=== PATIENT | female | born 1950 | race African-American/Black ===

== ENCOUNTER 2022-01-21 21:42 | Emergency (ER) | payer MEDICARE, MEDICAID ==
[~2022-01-21 21:42] MED LIST: MD-Gastroview 120 ML BOT ONE
== END 2022-01-22 02:36 ==
LOC: CSHERS 21:42
DX: K94.23 Gastrostomy malfunction (principal); I12.9 Hypertensive chronic kidney disease with stage 1 through stage 4 chronic kidney disease, or unspecified chronic kidney disease; N18.9 Chronic kidney disease, unspecified; K21.9 Gastro-esophageal reflux disease without esophagitis; Z79.899 Other long term (current) drug therapy
CPT/HCPCS: 43762; 74018; Q9963

== ENCOUNTER 2022-06-20 11:27 | Outpatient (CLI) | payer MEDICARE, MEDICAID | END 2022-06-20 11:28 | disposition home or self-care (01) | LOC: CSHWCC 11:27 | PROVIDERS: ATTEND Preventive Medicine Undersea and Hyperbaric Medicine | DX: I87.311 Chronic venous hypertension (idiopathic) with ulcer of right lower extremity (principal); L97.819 Non-pressure chronic ulcer of other part of right lower leg with unspecified severity; R60.0 Localized edema ==

== ENCOUNTER 2022-07-12 13:08 | Outpatient (CLI) | payer MEDICARE, MEDICAID | END 2022-07-12 13:09 | disposition home or self-care (01) | LOC: CSHWCC 13:08 | PROVIDERS: ATTEND Nurse Practitioner Family | DX: L89.622 Pressure ulcer of left heel, stage 2 (principal) | CPT/HCPCS: 17250 ==

== ENCOUNTER 2022-08-10 15:08 | Outpatient (CLI) | payer MEDICARE, MEDICAID | END 2022-08-10 15:09 | disposition home or self-care (01) | LOC: CSHWCC 15:08 | PROVIDERS: ATTEND Nurse Practitioner Family | DX: L89.622 Pressure ulcer of left heel, stage 2 (principal) | CPT/HCPCS: 99213; G0463 ==

== ENCOUNTER 2022-09-07 14:26 | Outpatient (CLI) | payer MEDICARE, MEDICAID | END 2022-09-07 14:27 | disposition home or self-care (01) | LOC: CSHWCC 14:26 | PROVIDERS: ATTEND Nurse Practitioner Family | DX: L89.622 Pressure ulcer of left heel, stage 2 (principal) | CPT/HCPCS: 87070; 87077; 87205; 99213; G0463 ==

== ENCOUNTER 2022-09-07 15:31 | Emergency (ER) | payer MEDICARE, MEDICAID | END 2022-09-07 20:10 | LOC: CSHERS 15:31 | DX: R09.02 Hypoxemia (principal); I12.9 Hypertensive chronic kidney disease with stage 1 through stage 4 chronic kidney disease, or unspecified chronic kidney disease; N18.9 Chronic kidney disease, unspecified; K21.9 Gastro-esophageal reflux disease without esophagitis; I25.10 Atherosclerotic heart disease of native coronary artery without angina pectoris; Z86.73 Personal history of transient ischemic attack (TIA), and cerebral infarction without residual deficits; L89.622 Pressure ulcer of left heel, stage 2 | CPT/HCPCS: 87070; 87077; 87186; 87205; 97139; 99284; G0463; 99213 ==

== ENCOUNTER 2022-09-08 11:05 | Emergency (ER) | payer MEDICARE, MEDICAID | END 2022-09-08 12:15 | disposition home or self-care (01) | LOC: CSHERS 11:05 | DX: K94.23 Gastrostomy malfunction (principal); I12.9 Hypertensive chronic kidney disease with stage 1 through stage 4 chronic kidney disease, or unspecified chronic kidney disease; N18.9 Chronic kidney disease, unspecified; I25.10 Atherosclerotic heart disease of native coronary artery without angina pectoris; K21.9 Gastro-esophageal reflux disease without esophagitis | CPT/HCPCS: 43762; 74018 ==

== ENCOUNTER 2022-10-13 21:30 | Emergency (ER) | payer MEDICARE, MEDICAID ==
[~2022-10-13 21:30] MED LIST changes: +GASTROGRAFIN 30 ML BOT ONE; -MD-Gastroview 120 ML BOT ONE
== END 2022-10-14 01:01 ==
LOC: CSHERS 21:30
DX: Z43.1 Encounter for attention to gastrostomy (principal); I12.9 Hypertensive chronic kidney disease with stage 1 through stage 4 chronic kidney disease, or unspecified chronic kidney disease; N18.9 Chronic kidney disease, unspecified; K21.9 Gastro-esophageal reflux disease without esophagitis; I25.10 Atherosclerotic heart disease of native coronary artery without angina pectoris; Z79.82 Long term (current) use of aspirin; Z79.899 Other long term (current) drug therapy
CPT/HCPCS: 43762; 74018

== ENCOUNTER 2023-02-14 14:44 | Outpatient (CLI) | payer MEDICARE, MEDICAID | END 2023-02-14 14:45 | disposition home or self-care (01) | LOC: CSHWCC 14:44 | PROVIDERS: ATTEND Nurse Practitioner Family | DX: L89.323 Pressure ulcer of left buttock, stage 3 (principal) | CPT/HCPCS: 97139; 97597; G0463; 99212 ==